=== PATIENT | female | born 1990 | race Caucasian/White ===

== ENCOUNTER → 2019-02-22 | Outpatient (CLI) | payer BC ==
[2019-02-22 11:35] LABS: Source, Urine Clean Catch
[2019-02-22 12:27] LABS: Bilirubin, Urine Neg (Neg); Blood, Urine 1+ (Neg); Glucose Qualitative, Urine Neg (Neg); Ketones, Urine Neg (Neg); Leukocyte Esterase, Urine 2+ (Neg); Nitrite, Urine Neg (Neg); Protein, Urine 2+ (Neg); Urobilinogen, Urine NORM (Normal)
[2019-02-22 12:38] LABS: Appearance, Urine Hazy (Clear); Color, Urine Yellow (P-Yellow)
[2019-02-22 12:40] LABS: White Blood Cells, Urine TNTC /hpf (0-5)
[2019-02-22 12:41] LABS: Bacteria Many /hpf; Squamous Epithelial Cells Few /hpf (Few)
== END | disposition home or self-care (01) ==
LOC: LAB SHORT 10:29 → LAB 10:29
PROVIDERS: Obstetrics & Gynecology
DX: R30.0 Dysuria (principal)
CPT/HCPCS: 81001; 87077; 87086; 87186

== ENCOUNTER → 2019-03-06 | Outpatient (CLI) | payer BC ==
[2019-03-06 16:59] LABS: Source, Urine Clean Catch
[2019-03-06 18:16] LABS: Bilirubin, Urine Neg (Neg); Blood, Urine 5+ (Neg); Glucose Qualitative, Urine Neg (Neg); Ketones, Urine Neg (Neg); Leukocyte Esterase, Urine 3+ (Neg); Nitrite, Urine Neg (Neg); Protein, Urine 3+ (Neg); Urobilinogen, Urine NORM (Normal)
[2019-03-06 19:01] LABS: Appearance, Urine Hazy (Clear); Color, Urine Yellow (P-Yellow)
[2019-03-06 19:02] LABS: White Blood Cells, Urine TNTC /hpf (0-5)
[2019-03-06 19:03] LABS: Bacteria Few /hpf; Squamous Epithelial Cells Few /hpf (Few)
== END | disposition home or self-care (01) ==
LOC: LAB 16:15 → LAB SHORT 16:15
PROVIDERS: Obstetrics & Gynecology
DX: R30.0 Dysuria (principal)
CPT/HCPCS: 81001

== ENCOUNTER → 2021-05-14 | Outpatient (CLI) | payer BC ==
[2021-05-15 17:07] LABS: HPV 16 Negative (Negative); HPV 18 Negative (Negative); HPV OTHER HR TYPES Negative (Negative)
== END ==
LOC: LAB SHORT 14:59 → LAB 14:59
PROVIDERS: Advanced Practice Midwife
DX: Z01.419 Encounter for gynecological examination (general) (routine) without abnormal findings (principal)
CPT/HCPCS: 87624; G0123

== ENCOUNTER → 2021-08-01 | Outpatient (CLI) | payer SELFPAY | END | disposition home or self-care (01) | LOC: LAB SHORT 13:23 | DX: N84.0 Polyp of corpus uteri (principal) | CPT/HCPCS: 88305 ==

== ENCOUNTER 2021-11-24 13:35 | Emergency (ER) | payer OTHER ==
[~2021-11-24] VITALS: Ht 162.6 cm; Wt 78.5 kg
[2021-11-24] MEDS ORDERED: PROG100 (15:01)
[2021-11-24] MEDS ORDERED: Aspir 8181 MG (15:01)
== END 2021-11-24 17:48 | disposition home or self-care (01) ==
LOC: ER 13:35
DX: O20.8 Other hemorrhage in early pregnancy (principal); O99.891 Other specified diseases and conditions complicating pregnancy; M54.50 Low back pain, unspecified; Z3A.01 Less than 8 weeks gestation of pregnancy; V49.9XXA Car occupant (driver) (passenger) injured in unspecified traffic accident, initial encounter
CPT/HCPCS: 76801; 76817; 99284-25

== ENCOUNTER → 2022-06-17 | Outpatient (CLI) | payer OTHER ==
[~2022-06-17] MED LIST: Aspir 8181 MG; PROG100
== END | disposition home or self-care (01) ==
LOC: LAB 16:39 → LAB SHORT 16:39
DX: Z34.83 Encounter for supervision of other normal pregnancy, third trimester (principal)
CPT/HCPCS: 87081; 87150

== ENCOUNTER 2022-07-04 20:44 | Inpatient (IN) | payer OTHER ==
[~2022-07-04] VITALS: Ht 165.1 cm; Wt 87.0 kg
[2022-07-04] MEDS ORDERED: PRENATAL TABLE1 EAC2 (21:27)
[2022-07-04 21:47] LABS: BASOPHILS ABSOLUTE AUTO 0.03 K/mm3 (0.00-0.23); BASOPHILS PERCENT AUTO 0 % (0-2); EOSINOPHILS PERCENT AUTO 1 % (0-6); Hematocrit 37.6 % (33.0-51.0); Hemoglobin 13.1 g/dL (11.5-16.0); IMMATURE GRAN ABSOLUTE AUTO 0.05 K/mm3 (0.00-0.10); IMMATURE GRAN PERCENT AUTO 0 % (0-1); LYMPHOCYTES ABSOLUTE AUTO 1.86 K/mm3 (0.84-5.20); LYMPHOCYTES PERCENT AUTO 14 % (21-46); MONOCYTES ABSOLUTE AUTO 0.87 K/mm3 (0.16-1.47); MONOCYTES PERCENT AUTO 7 % (4-13); Mean Corpuscular HGB 31.6 pg (26.0-34.0); Mean Corpuscular HGB Conc 34.8 g/dL (31.5-36.5); Mean Corpuscular Volume 91 fL (80-100); Mean Platelet Volume 10.4 fL (9.1-12.4); NEUTROPHILS PERCENT AUTO 78 % (41-73); Platelet Count 204 K/mm3 (150-400); RDW Coefficient Variation 11.9 % (11.7-14.2); RDW Standard Deviation 39.5 fL (35.1-46.3); Red Blood Cell Count 4.15 M/mm3 (3.80-5.20); White Blood Cell Count 13.01 K/mm3 (4.00-11.30)
[2022-07-04 23:22] LABS: PCO2 Cord - Arterial 67.4 mmHg (40-50); pH Cord - Arterial 7.19 (7.28-7.35)
[2022-07-04 23:23] LABS: PO2 Cord - Arterial < 14 mmHg (16-20)
[2022-07-04 23:25] LABS: PCO2 Cord - Venous 49.4 mmHg (40-50); PO2 Cord - Venous 19.2 mmHg (28-32); pH Umbilical Cord - Venous 7.31 (7.26-7.35)
[2022-07-05 03:18] LABS: BASOPHILS ABSOLUTE AUTO 0.02 K/mm3 (0.00-0.23); BASOPHILS PERCENT AUTO 0 % (0-2); EOSINOPHILS PERCENT AUTO 0 % (0-6); Hemoglobin 11.6 g/dL (11.5-16.0); IMMATURE GRAN ABSOLUTE AUTO 0.09 K/mm3 (0.00-0.10); IMMATURE GRAN PERCENT AUTO 1 % (0-1); LYMPHOCYTES ABSOLUTE AUTO 0.79 K/mm3 (0.84-5.20); LYMPHOCYTES PERCENT AUTO 5 % (21-46); MONOCYTES ABSOLUTE AUTO 0.51 K/mm3 (0.16-1.47); MONOCYTES PERCENT AUTO 3 % (4-13); Mean Corpuscular HGB 31.9 pg (26.0-34.0); Mean Corpuscular HGB Conc 35.2 g/dL (31.5-36.5); Mean Corpuscular Volume 91 fL (80-100); Mean Platelet Volume 10.3 fL (9.1-12.4); NEUTROPHILS ABSOLUTE AUTO 14.91 K/mm3 (1.96-9.15); NEUTROPHILS PERCENT AUTO 91 % (41-73); Platelet Count 193 K/mm3 (150-400); RDW Coefficient Variation 11.8 % (11.7-14.2); RDW Standard Deviation 39.2 fL (35.1-46.3); Red Blood Cell Count 3.64 M/mm3 (3.80-5.20); White Blood Cell Count 16.32 K/mm3 (4.00-11.30)
[2022-07-05 11:09] LABS: BASOPHILS ABSOLUTE AUTO 0.02 K/mm3 (0.00-0.23); BASOPHILS PERCENT AUTO 0 % (0-2); EOSINOPHILS PERCENT AUTO 0 % (0-6); Hematocrit 31.1 % (33.0-51.0); Hemoglobin 10.7 g/dL (11.5-16.0); IMMATURE GRAN ABSOLUTE AUTO 0.06 K/mm3 (0.00-0.10); IMMATURE GRAN PERCENT AUTO 0 % (0-1); LYMPHOCYTES ABSOLUTE AUTO 0.78 K/mm3 (0.84-5.20); LYMPHOCYTES PERCENT AUTO 5 % (21-46); MONOCYTES ABSOLUTE AUTO 0.57 K/mm3 (0.16-1.47); MONOCYTES PERCENT AUTO 4 % (4-13); Mean Corpuscular HGB 31.8 pg (26.0-34.0); Mean Corpuscular HGB Conc 34.4 g/dL (31.5-36.5); Mean Corpuscular Volume 92 fL (80-100); Mean Platelet Volume 10.3 fL (9.1-12.4); NEUTROPHILS ABSOLUTE AUTO 14.49 K/mm3 (1.96-9.15); NEUTROPHILS PERCENT AUTO 91 % (41-73); Platelet Count 193 K/mm3 (150-400); RDW Coefficient Variation 11.9 % (11.7-14.2); RDW Standard Deviation 40.1 fL (35.1-46.3); Red Blood Cell Count 3.37 M/mm3 (3.80-5.20); White Blood Cell Count 15.92 K/mm3 (4.00-11.30)
--- NOTE | 2022-07-06 04:18 | NUR ---
0320-pt BP 80's/40's pulse and respirations WNL, pt denies any symptoms no dizziness, light headed, nausea etc. pt sleeping in bed immediately prior to VS assessment.
== END 2022-07-06 13:12 | disposition home or self-care (01) | DRG 788 ==
LOC: OBS 20:44 → BC 20:44 → OBS 21:00 → BC 21:59
PROVIDERS: Advanced Practice Midwife; ADMIT Obstetrics & Gynecology
PROC: 10D00Z1 Extraction of Products of Conception, Low, Open Approach (ICD-10-PCS; principal; 2022-07-05)
DX: O32.1XX0 Maternal care for breech presentation, not applicable or unspecified (principal); Z3A.38 38 weeks gestation of pregnancy; Z37.0 Single live birth
CPT/HCPCS: 36415; 59025; 81003; 82803; 85025; 86850; 86900; 86901; A9270; J0290; J0690; J1100; J1885; J2370; J2405; J2704; J2765; J3010; J7120

== ENCOUNTER 2024-08-10 11:13 | Day surgery (SDC) | payer OTHER ==
[~2024-08-10] VITALS: Ht 162.6 cm; Wt 91.3 kg
[~2024-08-10 11:13] MED LIST changes: +PRENATAL TABLE1 EAC2
[2024-08-10] MEDS ORDERED: BIRTH CONTROL (11:55)
[2024-08-10] MEDS ORDERED: Lactated Ringer's 1,000 ML IV ONE ×2 (12:03→12:24)
[2024-08-10] MEDS ORDERED: propofoL 60 ML IV ONE (12:19)
[2024-08-10] MEDS ORDERED: Dexamethasone Sod Phos 10 MG/ML 1ML VIAL ONE (12:20)
[2024-08-10] MEDS ORDERED: FentaNYL Citrate 50 MCG/ML 2 ML Injection ONE (12:20)
[2024-08-10] MEDS ORDERED: Midazolam HCl 1MG / ML 2ML Vial ONE (12:23)
[2024-08-10] MEDS ORDERED: Ketorolac Tromethamine 30mg Vial ONE (12:45)
[2024-08-10] MEDS ORDERED: Ondansetron HCl 2 MG / ML 2ML Vial ONE (12:49)
[2024-08-10 13:44] VITALS: BP 114/66
--- NOTE | 2024-08-10 14:49 | NUR ---
08/10/24 0299 Brisa Moreno PT UP TO BATROOM TO VOID, CLAIMED SHE HAD NO ISSUES VOIDING
== END 2024-08-10 14:45 | disposition home or self-care (01) ==
LOC: ORSCSDS 11:13
PROVIDERS: Obstetrics & Gynecology
PROC: 0UDB8ZX Extraction of Endometrium, Via Natural or Artificial Opening Endoscopic, Diagnostic (ICD-10-PCS; principal; 2024-08-10 12:45)
DX: N84.0 Polyp of corpus uteri (principal); Z79.3 Long term (current) use of hormonal contraceptives; Z79.82 Long term (current) use of aspirin; Z79.899 Other long term (current) drug therapy
CPT/HCPCS: 88305; J1100; J1885; J2250; J2405; J2704; J3010; J7120

== ENCOUNTER → 2025-05-21 | Outpatient (CLI) | payer OTHER ==
[~2025-05-21] MED LIST changes: +BIRTH CONTROL
[2025-05-23 15:14] LABS: APTIMA MEDIA TYPE Urine; C. TRACHOMATIS BY TMA Negative (Negative); N. GONORRHOEAE BY TMA Negative (Negative); SPECIMEN SOURCE Urine
== END ==
LOC: LAB SHORT 13:52 → LAB 13:52
PROVIDERS: Obstetrics & Gynecology
DX: Z34.81 Encounter for supervision of other normal pregnancy, first trimester (principal)
CPT/HCPCS: 87491; 87591

== ENCOUNTER 2025-05-29 10:36 | Day surgery (SDC) | payer OTHER ==
[~2025-05-29] VITALS: Ht 162.6 cm; Wt 89.0 kg
[~2025-05-29 10:36] MED LIST changes: +Dexamethasone Sod Phos 10 MG/ML 1ML VIAL ONE; +FentaNYL Citrate 50 MCG/ML 2 ML Injection ONE; +Ketorolac Tromethamine 30mg Vial ONE; +Midazolam HCl 1MG / ML 2ML Vial ONE; +Ondansetron HCl 2 MG / ML 2ML Vial ONE
--- NOTE | 2025-05-29 12:59 | NUR ---
05/29/25 1259 SUSAN HANEY PT READY FOR OR, DR. NASH IN TO SEE PT. DR. WHATLEY STILL IN PREVIOUS UROLOGY CASE WHICH IS RUNNING LONGER THAN EXPECTED. PT UPDATED AT THIS TIME AND EARLIER, CALL LIGHT IN REACH. PT DENIES NEEDS AT THIS TIME.
[2025-05-29] MEDS ORDERED: Citric Acid/Sodium Citrate 30 ML BTL ONE (13:26)
[2025-05-29] MEDS ORDERED: Methylergonovine Maleate 0.2MG / ML 1ML Amp ONE (13:52)
--- NOTE | 2025-05-29 14:18 | NUR ---
05/29/25 1418 Sumaya Wagner 1405 - PT TO PACU FROM OR, TEARFUL, TACHYCARDIC. THIERRY THOMAS AT BEDSIDE PROVIDING EMOTIONAL SUPPORT 1415 - HR AND RR WDL UPON DC TO STEPDOWN. PT A&O, CALM, COOPERATIVE. MILD PAIN, ONLY
[2025-05-29 15:13] VITALS: BP 117/70
[2025-06-06] MEDS ORDERED: DELESTROGE IM (01:18)
[2025-06-06] MEDS ORDERED: PROGESTERO50 MG/1 ML IM (01:19)
== END 2025-05-29 15:16 | disposition home or self-care (01) ==
LOC: ORSCSDS 10:36
PROVIDERS: Obstetrics & Gynecology
PROC: 0UDB7ZX Extraction of Endometrium, Via Natural or Artificial Opening, Diagnostic (ICD-10-PCS; principal; 2025-05-29 12:30)
DX: O02.1 Missed abortion (principal); E66.9 Obesity, unspecified; Z68.33 Body mass index [BMI] 33.0-33.9, adult
CPT/HCPCS: 88305; A9270; J1100; J1885; J2210; J2250; J2405; J2704; J3010

== ENCOUNTER 2025-06-05 15:46 | Emergency (ER) | payer OTHER ==
[~2025-06-05] VITALS: Ht 162.6 cm; Wt 89.8 kg
[~2025-06-05 15:46] MED LIST changes: -Dexamethasone Sod Phos 10 MG/ML 1ML VIAL ONE; -FentaNYL Citrate 50 MCG/ML 2 ML Injection ONE; -Ketorolac Tromethamine 30mg Vial ONE; -Midazolam HCl 1MG / ML 2ML Vial ONE; -Ondansetron HCl 2 MG / ML 2ML Vial ONE
[2025-06-05 17:37] LABS: BASOPHILS ABSOLUTE AUTO 0.03 K/mm3 (0.00-0.23); BASOPHILS PERCENT AUTO 0 % (0-2); EOSINOPHILS ABSOLUTE AUTO 0.20 K/mm3 (0.00-0.68); EOSINOPHILS PERCENT AUTO 2 % (0-6); Hematocrit 39.0 % (33.0-51.0); Hemoglobin 13.2 g/dL (11.5-16.0); IMMATURE GRAN ABSOLUTE AUTO 0.02 K/mm3 (0.00-0.10); IMMATURE GRAN PERCENT AUTO 0 % (0-1); LYMPHOCYTES ABSOLUTE AUTO 2.26 K/mm3 (0.84-5.20); LYMPHOCYTES PERCENT AUTO 25 % (21-46); MONOCYTES ABSOLUTE AUTO 0.67 K/mm3 (0.16-1.47); MONOCYTES PERCENT AUTO 7 % (4-13); Mean Corpuscular HGB Conc 33.8 g/dL (31.5-36.5); Mean Corpuscular Volume 91 fL (80-100); NEUTROPHILS ABSOLUTE AUTO 6.03 K/mm3 (1.96-9.15); NEUTROPHILS PERCENT AUTO 66 % (41-73); NRBC ABSOLUTE 0.00 K/mm3 (0.00-0.02); NRBC Auto 0.0 /100 WBC (0.0-0.2); Platelet Count 235 K/mm3 (150-400); RDW Coefficient Variation 12.4 % (11.7-14.2); RDW Standard Deviation 41.8 fL (35.1-46.3)
[2025-06-05 19:00] VITALS: BP 107/71
[2025-06-06] MEDS ORDERED: DELESTROGE IM (01:18)
[2025-06-06] MEDS ORDERED: PROGESTERO50 MG/1 ML IM (01:19)
== END 2025-06-05 21:30 | disposition home or self-care (01) ==
LOC: ER 15:46
PROVIDERS: Emergency Medicine
DX: O03.1 Delayed or excessive hemorrhage following incomplete spontaneous abortion (principal)
CPT/HCPCS: 76856; 85025; 99284-25